=== PATIENT | female | born 1985 | race African-American/Black ===

== ENCOUNTER 2018-02-02 21:52 | Emergency (ER) | payer MEDICARE, MEDICAID ==
[~2018-02-02] VITALS: Ht 157.5 cm; Wt 65.5 kg
[~2018-02-02 21:52] MED LIST: ALBU8HFA PO; DULO60CA64 PO; HYDR-3717 PO; NAPR220T67 PO; NICO-687 TD
[2018-02-02 23:00] LABS: HCG SERUM QL POSITIVE
[2018-02-02 23:52] LABS: CLARITY,URINE CLEAR (Clear); COLOR,URINE YELLOW (Yellow); GLUCOSE, URINE NEGATIVE (Neg); KETONES,URINE 15 mg/dl (Neg); LEUKOCYTE ESTERASE ,URINE NEGATIVE (Neg); NITRITES, URINE NEGATIVE (Neg); OCCULT BLOOD,URINE NEGATIVE (Neg); PH,URINE 6.5 (4.8-8.0); PROTEIN,URINE NEGATIVE (Neg); UROBILINOGEN,URINE 0.2 E.U/dL (0.2-1.0)
[2018-02-02 23:54] LABS: UA COLLECTION TYPE CLN CATCH MIDSTREAM
[2018-02-03] MEDS ORDERED: IBUP-1984 PO (00:05)
[2018-02-03 00:08] VITALS: BP 119/72
== END 2018-02-03 00:10 | disposition home or self-care (01) ==
LOC: ER 21:56
DX: O03.9 Complete or unspecified spontaneous abortion without complication (principal); N93.8 Other specified abnormal uterine and vaginal bleeding; G89.29 Other chronic pain; J45.909 Unspecified asthma, uncomplicated; Z88.6 Allergy status to analgesic agent; Z79.899 Other long term (current) drug therapy
CPT/HCPCS: 36415; 76856; 81003; 84702; 84703; 99285

== ENCOUNTER 2018-07-08 19:41 | Emergency (ER) | payer MEDICARE, MEDICAID ==
[~2018-07-08] VITALS: Ht 167.6 cm; Wt 67.2 kg
[2018-07-08 20:06] VITALS: BP 144/89
--- NOTE | 2018-07-08 20:17 | NUR ---
PT EDUCATED ON NON-EMERGENT BP, WHILE TRIAGING PT WANTS TO LEAVE AND NOT WAIT TO BE SEEN.
== END 2018-07-08 23:49 | disposition left against medical advice (07) ==
LOC: ER 19:42
DX: F41.9 Anxiety disorder, unspecified (principal); R06.02 Shortness of breath; R07.89 Other chest pain; Z53.21 Procedure and treatment not carried out due to patient leaving prior to being seen by health care provider

== ENCOUNTER 2018-12-25 19:42 | Emergency (ER) | payer MEDICARE, MEDICAID ==
[~2018-12-25] VITALS: Ht 160 cm; Wt 63.2 kg
[~2018-12-25 19:42] MED LIST changes: -DULO60CA64 PO; +DULO60CA65 PO
[2018-12-25] MEDS ORDERED: ketorolac trometh. 30mg/ml inj. IV ONE (20:25)
[2018-12-25 20:52] LABS: URINE HCG NEGATIVE (NEG)
--- NOTE | 2018-12-25 20:57 | NUR ---
pt back to room from ct, visual acuity completed, pt tolerated well.
[2018-12-25 21:00] LABS: CLARITY,URINE CLEAR (Clear); COLOR,URINE YELLOW (Yellow); GLUCOSE, URINE NEGATIVE (Neg); KETONES,URINE >=80 mg/dl (Neg); LEUKOCYTE ESTERASE ,URINE NEGATIVE (Neg); NITRITES, URINE NEGATIVE (Neg); OCCULT BLOOD,URINE TRACE-INTACT (Neg); PROTEIN,URINE NEGATIVE (Neg); UROBILINOGEN,URINE 0.2 E.U/dL (0.2-1.0)
[2018-12-25 21:01] LABS: BASOPHILS % (AUTO) 0.4 % (0-1); EOSINOPHILS # (AUTO) 0.1 X10'3 (0-0.9); EOSINOPHILS % (AUTO) 1.3 % (0-6); HEMATOCRIT 39.4 % (35.0-45.0); HEMOGLOBIN 13.2 g/dl (12.0-16.0); LYMPHOCYTES # (AUTO) 1.6 X10'3 (1.1-4.8); LYMPHOCYTES % (AUTO) 20.8 % (21-51); MEAN CORPUSCULAR HGB CONC 33.6 g/dL (33.0-36.5); MEAN CORPUSCULAR VOLUME 95.4 FL (78-98); MONOCYTES # (AUTO) 0.6 X10'3 (0-0.9); MONOCYTES % (AUTO) 7.7 % (2-12); NEUTROPHILS # (AUTO) 5.3 X10'3 (1.8-7.7); NEUTROPHILS % (AUTO) 69.8 % (42-75); PLATELET COUNT 209 X10'3 (140-440); RED BLOOD COUNT 4.13 X10'6 (4.20-5.60); RED CELL DISTRIBUTION WIDTH 12.8 % (11.5-14.5); UA COLLECTION TYPE CLN CATCH MIDSTREAM; WHITE BLOOD COUNT 7.6 X10'3 (4.5-11.0)
[2018-12-25 21:07] LABS: ALANINE AMINOTRANSFERASE 45 U/L (12-78); ALBUMIN 3.7 G/DL (3.4-5.0); ALBUMIN/GLOBULIN RATIO 0.9 (1.1-1.5); ALKALINE PHOSPHATASE 36 IU/L (46-116); ANION GAP 13 (8-16); ASPARTATE AMINO TRANSFERASE 25 U/L (10-37); BILIRUBIN,TOTAL 0.3 MG/DL (0.1-1.0); BLOOD UREA NITROGEN 6 MG/DL (7-18); BUN/CREATININE RATIO 7.1 (6.6-38.0); CALCIUM 8.6 MG/DL (8.5-10.1); CHLORIDE 105 MMOL/L (99-107); CREATININE 0.84 MG/DL (0.40-0.90); GLUCOSE 85 MG/DL (70-104); MAGNESIUM 1.7 MG/DL (1.5-2.4); POTASSIUM 3.5 MMOL/L (3.5-5.1); SODIUM 139 MMOL/L (135-145); TOTAL PROTEIN 7.9 G/DL (6.4-8.2); eGFR > 90 ML/MIN
[2018-12-25 21:08] LABS: BACTERIA,URINE NONE SEEN /HPF (Neg); MUCUS STRANDS FEW /LPF (Neg); RBC,URINE 0-2 /HPF (0-2); SQUAMOUS EPITHELIAL CELL,UR NONE SEEN /LPF (FEW); WBC,URINE NONE SEEN /HPF (0-4)
[2018-12-25] MEDS ORDERED: dexamethasone 4mg/ml inj IV STA (21:23)
[2018-12-25] MEDS ORDERED: sulfamethoxazole/trimethoprim DS (800/160mg) tablet PO ONE (21:25)
[2018-12-25] MEDS ORDERED: cephalexin 250mg capsule PO ONE (21:25)
[2018-12-25] MEDS ORDERED: SULF1TAB49 PO (21:40)
[2018-12-25] MEDS ORDERED: CEPH500C5 PO (21:40)
[2018-12-25] MEDS ORDERED: TRAM50TA2 PO (21:52)
[2018-12-25 22:07] VITALS: BP 125/87
== END 2018-12-25 22:09 | disposition home or self-care (01) ==
LOC: ER 19:43
DX: H00.031 Abscess of right upper eyelid (principal); R51 Headache; J45.909 Unspecified asthma, uncomplicated; G89.29 Other chronic pain; F41.9 Anxiety disorder, unspecified; F32.9 Major depressive disorder, single episode, unspecified; F17.200 Nicotine dependence, unspecified, uncomplicated; Z88.6 Allergy status to analgesic agent; Z79.2 Long term (current) use of antibiotics; Z79.899 Other long term (current) drug therapy
CPT/HCPCS: 36415; 70486; 80053; 81001; 81025; 83605; 83735; 84145; 85025; 85610; 87040; 96374; 96375; 99284; J1100; J1885

== ENCOUNTER 2019-06-28 13:04 | Emergency (ER) | payer MEDICARE, MEDICAID ==
[~2019-06-28] VITALS: Ht 160 cm; Wt 70.0 kg
[~2019-06-28 13:04] MED LIST changes: +CEPH500C5 PO
[2019-06-28 13:16] VITALS: BP 135/90
[2019-06-28] MEDS ORDERED: proCHLORperazine 10mg tablet PO ONE (14:00)
[2019-06-28] MEDS ORDERED: aspirin 325mg tablet PO ONE (14:00)
[2019-06-28] MEDS ORDERED: ketorolac trometh. 30mg/ml inj. IM ONE (14:00)
[2019-06-28] MEDS ORDERED: acetaminophen 325mg tablet PO ONE (14:00)
[2019-06-28] MEDS ORDERED: dexamethasone 4mg tablet PO ONE (16:10)
[2019-06-28] MEDS ORDERED: HYDROcodone/acetaminophen 5mg/325mg tablet PO ONE (16:10)
[2019-06-28] MEDS ORDERED: diphenhydrAMINE 25mg capsule PO ONE (16:20)
[2019-06-28 16:24] LABS: URINE HCG NEGATIVE (NEG)
== END 2019-06-28 17:52 | disposition home or self-care (01) ==
LOC: ER 13:07
DX: R51 Headache (principal); R53.1 Weakness; R53.83 Other fatigue; J45.909 Unspecified asthma, uncomplicated; G89.29 Other chronic pain; F41.9 Anxiety disorder, unspecified; F32.9 Major depressive disorder, single episode, unspecified; Z79.899 Other long term (current) drug therapy
CPT/HCPCS: 70450; 81025; 96372; 99284; J1885; Q0163; Q0164

== ENCOUNTER 2020-07-22 02:14 | Emergency (ER) | payer MEDICARE, MEDICAID ==
[~2020-07-22] VITALS: Ht 157.5 cm; Wt 68.1 kg
[~2020-07-22 02:14] MED LIST changes: -CEPH500C5 PO
[2020-07-22 02:24] VITALS: BP 149/94
[2020-07-22] MEDS ORDERED: mag hydrox/Alum hydrox/simeth 30ml oral suspension PO ONE (02:55)
[2020-07-22] MEDS ORDERED: LIDOcaine Viscous 15ml cup MM ONE (02:55)
[2020-07-22] MEDS ORDERED: aspirin 81mg tab.chew PO ONE (02:55)
[2020-07-22] MEDS ORDERED: sucralfate 1gm/10ml UD suspension PO STA (02:55)
[2020-07-22 03:24] LABS: BASOPHILS % (AUTO) 0.5 % (0-1); EOSINOPHILS # (AUTO) 0.1 X10'3 (0-0.9); EOSINOPHILS % (AUTO) 1.3 % (0-6); HEMATOCRIT 37.4 % (35.0-45.0); HEMOGLOBIN 12.8 g/dl (12.0-16.0); LYMPHOCYTES # (AUTO) 2.4 X10'3 (1.1-4.8); MEAN CORPUSCULAR HEMOGLOBIN 32.7 PG (27.0-31.0); MEAN CORPUSCULAR HGB CONC 34.2 g/dL (33.0-36.5); MEAN CORPUSCULAR VOLUME 95.7 FL (78-98); MEAN PLATELET VOLUME 8.9 FL (7.4-10.4); MONOCYTES # (AUTO) 0.9 X10'3 (0-0.9); MONOCYTES % (AUTO) 11.9 % (2-12); NEUTROPHILS # (AUTO) 4.1 X10'3 (1.8-7.7); NEUTROPHILS % (AUTO) 54.3 % (42-75); PLATELET COUNT 178 X10'3 (140-440); RED BLOOD COUNT 3.91 X10'6 (4.20-5.60); RED CELL DISTRIBUTION WIDTH 12.6 % (11.5-14.5); WHITE BLOOD COUNT 7.5 X10'3 (4.5-11.0)
[2020-07-22 03:35] LABS: ALANINE AMINOTRANSFERASE 17 U/L (12-78); ALBUMIN 3.4 G/DL (3.4-5.0); ALBUMIN/GLOBULIN RATIO 0.9 (1.1-1.5); ALKALINE PHOSPHATASE 47 IU/L (46-116); ANION GAP 10 (8-16); ASPARTATE AMINO TRANSFERASE 22 U/L (10-37); BILIRUBIN,TOTAL 0.2 MG/DL (0.1-1.0); BLOOD UREA NITROGEN 21 MG/DL (7-18); BUN/CREATININE RATIO 21.2 (6.6-38.0); CALCIUM 8.9 MG/DL (8.5-10.1); CHLORIDE 105 MMOL/L (99-107); CREATININE 0.99 MG/DL (0.40-0.90); GLUCOSE 77 MG/DL (70-104); POTASSIUM 3.9 MMOL/L (3.5-5.1); SODIUM 140 MMOL/L (135-145); TOTAL CARBON DIOXIDE 25.3 MMOL/L (24-32); eGFR 77 ML/MIN
[2020-07-22 03:42] LABS: MAGNESIUM 1.8 MG/DL (1.5-2.4)
[2020-07-22] MEDS ORDERED: SUCR1TAB34 PO (04:02)
[2020-07-22] MEDS ORDERED: LORA-269 PO (04:10)
== END 2020-07-22 04:09 | disposition home or self-care (01) ==
LOC: ER 02:15
DX: R07.89 Other chest pain (principal); R06.02 Shortness of breath; J45.909 Unspecified asthma, uncomplicated; G89.29 Other chronic pain; F41.9 Anxiety disorder, unspecified; F32.9 Major depressive disorder, single episode, unspecified; Z79.899 Other long term (current) drug therapy
CPT/HCPCS: 36415; 71045; 80053; 83735; 83880; 84484; 85025; 93005; 99285

== ENCOUNTER 2021-08-10 23:22 | Emergency (ER) | payer MEDICARE, MEDICAID ==
[~2021-08-10] VITALS: Ht 160 cm; Wt 68.2 kg
[~2021-08-10 23:22] MED LIST changes: +LORA-269 PO; +SUCR1TAB34 PO
[2021-08-11 00:35] LABS: BASOPHILS % (AUTO) 0.4 % (0-1); EOSINOPHILS # (AUTO) 0.1 X10'3 (0-0.9); EOSINOPHILS % (AUTO) 2.2 % (0-6); HEMATOCRIT 38.6 % (35.0-45.0); HEMOGLOBIN 13.2 g/dl (12.0-16.0); LYMPHOCYTES # (AUTO) 2.1 X10'3 (1.1-4.8); LYMPHOCYTES % (AUTO) 36.3 % (21-51); MEAN CORPUSCULAR HEMOGLOBIN 31.9 PG (27.0-31.0); MEAN CORPUSCULAR HGB CONC 34.1 g/dL (33.0-36.5); MEAN CORPUSCULAR VOLUME 93.6 FL (78-98); MEAN PLATELET VOLUME 9.2 FL (7.4-10.4); MONOCYTES # (AUTO) 0.6 X10'3 (0-0.9); MONOCYTES % (AUTO) 10.9 % (2-12); NEUTROPHILS # (AUTO) 2.9 X10'3 (1.8-7.7); NEUTROPHILS % (AUTO) 50.2 % (42-75); PLATELET COUNT 187 X10'3 (140-440); RED BLOOD COUNT 4.12 X10'6 (4.20-5.60); RED CELL DISTRIBUTION WIDTH 13.4 % (11.5-14.5); WHITE BLOOD COUNT 5.8 X10'3 (4.5-11.0)
--- NOTE | 2021-08-11 01:00 | NUR ---
Pt pink, alert, no acute/resp distress. Bed in lowest position, rails 2/2 up, call weathers in reach. Pt laying supine, able to reposition herself prn.
[2021-08-11 01:01] LABS: ALANINE AMINOTRANSFERASE 22 U/L (12-78); ALBUMIN 3.9 G/DL (3.4-5.0); ALBUMIN/GLOBULIN RATIO 1.1 (1.1-1.5); ALKALINE PHOSPHATASE 51 IU/L (46-116); ANION GAP 7 (8-16); ASPARTATE AMINO TRANSFERASE 21 U/L (10-37); BILIRUBIN,TOTAL 0.2 MG/DL (0.1-1.0); BLOOD UREA NITROGEN 19 MG/DL (7-18); BUN/CREATININE RATIO 20.7 (6.6-38.0); CALCIUM 8.7 MG/DL (8.5-10.1); CHLORIDE 105 MMOL/L (99-107); CREATININE 0.92 MG/DL (0.40-0.90); GLUCOSE 83 MG/DL (70-104); POTASSIUM 3.8 MMOL/L (3.5-5.1); SODIUM 141 MMOL/L (135-145); TOTAL PROTEIN 7.4 G/DL (6.4-8.2); eGFR 83 ML/MIN
[2021-08-11] MEDS ORDERED: ketorolac tromethamine 15mg/ml inj. IV ONE ×2 (01:50→02:15)
[2021-08-11] MEDS ORDERED: NAPR-56 PO (01:53)
[2021-08-11] MEDS ORDERED: TRAM50TA2 PO (01:53)
[2021-08-11 02:22] VITALS: BP 123/79
== END 2021-08-11 02:23 | disposition home or self-care (01) ==
LOC: ER 23:23
DX: R07.9 Chest pain, unspecified (principal); J45.909 Unspecified asthma, uncomplicated; D64.9 Anemia, unspecified; G89.29 Other chronic pain; M54.9 Dorsalgia, unspecified; F41.9 Anxiety disorder, unspecified; F32.9 Major depressive disorder, single episode, unspecified; Z79.899 Other long term (current) drug therapy
CPT/HCPCS: 36415; 71045; 80053; 83880; 84484; 85025; 93005; 96374; 99285; J1885

== ENCOUNTER 2021-11-07 21:08 | Emergency (ER) | payer MEDICARE, MEDICAID ==
[~2021-11-07] VITALS: Ht 157.5 cm; Wt 71.6 kg
[2021-11-07 21:26] VITALS: BP 139/100
[2021-11-07] MEDS ORDERED: ibuprofen tablet 400 MG TABLET PO ONE (21:45)
[2021-11-08] MEDS ORDERED: naproxen 500mg tablet PO ONE (00:40)
--- NOTE | 2021-11-08 01:40 | NUR ---
PT DISCHARGED BEFORE NURSING ASSESSMENTS DONE, PT WAS PULLED FROM THE LOBBY BY THE ER MD TO BE SEEN
== END 2021-11-08 01:40 | disposition home or self-care (01) ==
LOC: ER 21:08
DX: B34.9 Viral infection, unspecified (principal); Z20.822 Contact with and (suspected) exposure to COVID-19; J45.909 Unspecified asthma, uncomplicated; G89.29 Other chronic pain; M54.9 Dorsalgia, unspecified; F31.9 Bipolar disorder, unspecified; Z79.899 Other long term (current) drug therapy
CPT/HCPCS: 71045; 87811; 99284

== ENCOUNTER 2022-02-27 00:28 | Emergency (ER) | payer MEDICARE, MEDICAID ==
[~2022-02-27] VITALS: Ht 157.5 cm; Wt 70.0 kg
[2022-02-27 03:05] VITALS: BP 122/100
[2022-02-27] MEDS ORDERED: morphine 4 MG/ML inj SYRINge IV ONE ×2 (03:25→04:15)
[2022-02-27] MEDS ORDERED: ondansetron/PF 4mg/2ml inj IV ONE (03:25)
[2022-02-27] MEDS ORDERED: normal saline 1000ML IV soln IVB ONE (03:25)
[2022-02-27] MEDS ORDERED: ampicillin/sulbac 3gm/NS 100ml 100 ML IV SCH (03:28)
[2022-02-27 04:09] LABS: BASOPHILS % (AUTO) 0.5 % (0-1); EOSINOPHILS # (AUTO) 0.1 X10'3 (0-0.9); EOSINOPHILS % (AUTO) 2.4 % (0-6); HEMATOCRIT 38.5 % (35.0-45.0); MEAN CORPUSCULAR HEMOGLOBIN 31.8 PG (27.0-31.0); MEAN CORPUSCULAR HGB CONC 33.7 g/dL (33.0-36.5); MEAN CORPUSCULAR VOLUME 94.3 FL (78-98); MEAN PLATELET VOLUME 9.4 FL (7.4-10.4); MONOCYTES # (AUTO) 0.4 X10'3 (0-0.9); MONOCYTES % (AUTO) 7.2 % (2-12); NEUTROPHILS # (AUTO) 3.3 X10'3 (1.8-7.7); NEUTROPHILS % (AUTO) 55.9 % (42-75); PLATELET COUNT 196 X10'3 (140-440); RED BLOOD COUNT 4.08 X10'6 (4.20-5.60); RED CELL DISTRIBUTION WIDTH 12.8 % (11.5-14.5); WHITE BLOOD COUNT 5.9 X10'3 (4.5-11.0)
[2022-02-27] MEDS ORDERED: iohexol 300mg/ml 100ml inj. ONE (04:09)
[2022-02-27 04:23] LABS: ALANINE AMINOTRANSFERASE 20 U/L (12-78); ALBUMIN/GLOBULIN RATIO 1.1 (1.1-1.5); ALKALINE PHOSPHATASE 63 IU/L (46-116); ANION GAP 10 (8-16); ASPARTATE AMINO TRANSFERASE 21 U/L (10-37); BILIRUBIN,TOTAL 0.2 MG/DL (0.1-1.0); BLOOD UREA NITROGEN 14 MG/DL (7-18); BUN/CREATININE RATIO 15.6 (6.6-38.0); CALCIUM 9.4 MG/DL (8.5-10.1); CHLORIDE 101 MMOL/L (99-107); GLUCOSE 97 MG/DL (70-104); SODIUM 138 MMOL/L (135-145); TOTAL CARBON DIOXIDE 27.4 MMOL/L (24-32); TOTAL PROTEIN 7.7 G/DL (6.4-8.2); eGFR 85 ML/MIN
--- NOTE | 2022-02-27 04:33 | NUR ---
CT WAS PAGED AT [id number]
[2022-02-27 05:03] LABS: HCG SERUM QL NEGATIVE
[2022-02-27] MEDS ORDERED: AMOX-117 PO (06:24)
[2022-02-27] MEDS ORDERED: HYDR-3965 PO (06:24)
--- NOTE | 2022-02-27 06:50 | NUR ---
Pt given and understands d/c instructions. IV d/c'd, catheter was intact.
== END 2022-02-27 06:50 | disposition home or self-care (01) ==
LOC: ER 00:30
DX: K08.89 Other specified disorders of teeth and supporting structures (principal); R68.84 Jaw pain; J45.909 Unspecified asthma, uncomplicated; G89.29 Other chronic pain; F41.9 Anxiety disorder, unspecified; F17.200 Nicotine dependence, unspecified, uncomplicated; Z87.01 Personal history of pneumonia (recurrent); Z86.2 Personal history of diseases of the blood and blood-forming organs and certain disorders involving the immune mechanism; Z98.890 Other specified postprocedural states; Z79.2 Long term (current) use of antibiotics; Z79.899 Other long term (current) drug therapy
CPT/HCPCS: 36415; 70487; 80053; 83605; 84703; 85025; 96365; 96375; 96376; 99285; J0295; J2270; J2405; J3490; J7030; Q9967

== ENCOUNTER 2022-03-26 22:00 | Emergency (ER) | payer BC, MEDICAID ==
[~2022-03-26] VITALS: Ht 157.5 cm; Wt 68.0 kg
[~2022-03-26 22:00] MED LIST changes: -HYDR-3717 PO; -LORA-269 PO; -NAPR220T67 PO; -NICO-687 TD; -SUCR1TAB34 PO
[2022-03-26 22:14] LABS: BASOPHILS # (AUTO) 0.1 X10'3 (0-0.2); BASOPHILS % (AUTO) 1.5 % (0-1); EOSINOPHILS % (AUTO) 0.7 % (0-6); HEMATOCRIT 39.4 % (35.0-45.0); HEMOGLOBIN 13.1 g/dl (12.0-16.0); LYMPHOCYTES % (AUTO) 33.1 % (21-51); MEAN CORPUSCULAR HEMOGLOBIN 31.2 PG (27.0-31.0); MEAN CORPUSCULAR HGB CONC 33.3 g/dL (33.0-36.5); MEAN CORPUSCULAR VOLUME 93.7 FL (78-98); MEAN PLATELET VOLUME 8.8 FL (7.4-10.4); MONOCYTES # (AUTO) 0.6 X10'3 (0-0.9); MONOCYTES % (AUTO) 9.2 % (2-12); NEUTROPHILS # (AUTO) 3.4 X10'3 (1.8-7.7); NEUTROPHILS % (AUTO) 55.5 % (42-75); PLATELET COUNT 218 X10'3 (140-440); RED BLOOD COUNT 4.21 X10'6 (4.20-5.60); RED CELL DISTRIBUTION WIDTH 12.8 % (11.5-14.5); WHITE BLOOD COUNT 6.2 X10'3 (4.5-11.0)
[2022-03-26] MEDS ORDERED: normal saline 1000ML IV soln IVB ONE (22:20)
[2022-03-26 22:29] LABS: ALANINE AMINOTRANSFERASE 17 U/L (12-78); ALBUMIN/GLOBULIN RATIO 1.1 (1.1-1.5); ALKALINE PHOSPHATASE 50 IU/L (46-116); ANION GAP 9 (8-16); ASPARTATE AMINO TRANSFERASE 18 U/L (10-37); BILIRUBIN,TOTAL 0.3 MG/DL (0.1-1.0); BLOOD UREA NITROGEN 8 MG/DL (7-18); BUN/CREATININE RATIO 7.7 (6.6-38.0); CALCIUM 9.6 MG/DL (8.5-10.1); CHLORIDE 100 MMOL/L (99-107); CREATININE 1.04 MG/DL (0.40-0.90); GLUCOSE 103 MG/DL (70-104); POTASSIUM 3.5 MMOL/L (3.5-5.1); SODIUM 137 MMOL/L (135-145); TOTAL PROTEIN 7.6 G/DL (6.4-8.2); eGFR 72 ML/MIN
[2022-03-26 22:55] LABS: D-DIMER 1.36 MG/L FEU (0-0.50)
[2022-03-27] MEDS ORDERED: iohexol 350MG/ML 100ml bottle IV ONE (00:29)
[2022-03-27] MEDS ORDERED: ketorolac tromethamine 15mg/ml inj. IV ONE (01:05)
[2022-03-27 01:48] LABS: URINE HCG NEGATIVE (NEG)
[2022-03-27 02:07] LABS: URINE AMPHETAMINE SCREEN NEGATIVE (Neg); URINE BARBITUATE SCREEN NEGATIVE (Neg); URINE BENZODIAZEPINES SCREEN NEGATIVE (Neg); URINE CANNABINOID SCREEN NEGATIVE (Neg); URINE COCAINE SCREEN NEGATIVE (Neg); URINE METHADONE SCREEN NEGATIVE (Neg); URINE OPIATE SCREEN NEGATIVE (Neg); URINE PHENCYCLIDINE SCREEN NEGATIVE (Neg)
[2022-03-27] MEDS ORDERED: acetaminophen 325mg tablet PO ONE (03:00)
[2022-03-27 03:40] VITALS: BP 132/78
== END 2022-03-27 03:43 | disposition home or self-care (01) ==
LOC: ER 22:01
DX: I47.1 Supraventricular tachycardia (principal); Z20.822 Contact with and (suspected) exposure to COVID-19; G89.29 Other chronic pain; J45.909 Unspecified asthma, uncomplicated; M54.9 Dorsalgia, unspecified; F31.9 Bipolar disorder, unspecified; Z79.899 Other long term (current) drug therapy
CPT/HCPCS: 36415; 71045; 71275; 80053; 80305; 81025; 83880; 84443; 84484; 85025; 85379; 87502; 87503; 87811; 93005; 96361; 96374; 99285; J1885; J3490; J7030; Q9967

== ENCOUNTER 2022-04-03 13:54 | Emergency (ER) | payer OTHER, MEDICAID ==
[~2022-04-03] VITALS: Ht 157.5 cm; Wt 67.3 kg
[2022-04-03 14:17] LABS: BASOPHILS % (AUTO) 0.4 % (0-1); EOSINOPHILS # (AUTO) 0.2 X10'3 (0-0.9); EOSINOPHILS % (AUTO) 2.5 % (0-6); HEMATOCRIT 37.7 % (35.0-45.0); HEMOGLOBIN 12.8 g/dl (12.0-16.0); LYMPHOCYTES # (AUTO) 2.5 X10'3 (1.1-4.8); LYMPHOCYTES % (AUTO) 35.8 % (21-51); MEAN CORPUSCULAR HEMOGLOBIN 31.9 PG (27.0-31.0); MEAN CORPUSCULAR HGB CONC 34.1 g/dL (33.0-36.5); MEAN CORPUSCULAR VOLUME 93.7 FL (78-98); MEAN PLATELET VOLUME 8.6 FL (7.4-10.4); MONOCYTES # (AUTO) 0.8 X10'3 (0-0.9); MONOCYTES % (AUTO) 10.9 % (2-12); NEUTROPHILS # (AUTO) 3.5 X10'3 (1.8-7.7); NEUTROPHILS % (AUTO) 50.4 % (42-75); PLATELET COUNT 215 X10'3 (140-440); RED BLOOD COUNT 4.02 X10'6 (4.20-5.60); WHITE BLOOD COUNT 6.9 X10'3 (4.5-11.0)
[2022-04-03 14:43] LABS: ALANINE AMINOTRANSFERASE 17 U/L (12-78); ALBUMIN 3.8 G/DL (3.4-5.0); ALBUMIN/GLOBULIN RATIO 1.1 (1.1-1.5); ALKALINE PHOSPHATASE 49 IU/L (46-116); ANION GAP 9 (8-16); ASPARTATE AMINO TRANSFERASE 16 U/L (10-37); BILIRUBIN,TOTAL 0.2 MG/DL (0.1-1.0); BLOOD UREA NITROGEN 7 MG/DL (7-18); BUN/CREATININE RATIO 7.9 (6.6-38.0); CALCIUM 9.2 MG/DL (8.5-10.1); CHLORIDE 102 MMOL/L (99-107); CREATININE 0.89 MG/DL (0.40-0.90); GLUCOSE 78 MG/DL (70-104); MAGNESIUM 1.8 MG/DL (1.5-2.4); POTASSIUM 3.5 MMOL/L (3.5-5.1); SODIUM 139 MMOL/L (135-145); TOTAL CARBON DIOXIDE 27.8 MMOL/L (24-32); TOTAL PROTEIN 7.3 G/DL (6.4-8.2); eGFR 86 ML/MIN
[2022-04-03 15:20] LABS: D-DIMER 1.45 MG/L FEU (0-0.50)
[2022-04-03 16:27] VITALS: BP 131/87
== END 2022-04-03 17:11 | disposition home or self-care (01) ==
LOC: ER 13:54
DX: R07.9 Chest pain, unspecified (principal); R42 Dizziness and giddiness; I10 Essential (primary) hypertension; J45.909 Unspecified asthma, uncomplicated; G89.29 Other chronic pain; M54.9 Dorsalgia, unspecified
CPT/HCPCS: 36415; 71045; 80053; 83735; 83880; 84484; 85025; 85379; 93005; 99285

== ENCOUNTER 2022-05-01 02:21 | Emergency (ER) | payer OTHER, MEDICAID ==
[~2022-05-01] VITALS: Ht 157.5 cm; Wt 71.4 kg
[2022-05-01 03:29] LABS: BASOPHILS % (AUTO) 0.2 % (0-1); EOSINOPHILS % (AUTO) 0 % (0-6); HEMOGLOBIN 13.6 g/dl (12.0-16.0); LYMPHOCYTES # (AUTO) 0.4 X10'3 (1.1-4.8); LYMPHOCYTES % (AUTO) 5.6 % (21-51); MEAN CORPUSCULAR HEMOGLOBIN 32.1 PG (27.0-31.0); MEAN CORPUSCULAR VOLUME 94.7 FL (78-98); MEAN PLATELET VOLUME 8.7 FL (7.4-10.4); MONOCYTES # (AUTO) 0.1 X10'3 (0-0.9); NEUTROPHILS # (AUTO) 6.3 X10'3 (1.8-7.7); NEUTROPHILS % (AUTO) 93.2 % (42-75); PLATELET COUNT 245 X10'3 (140-440); RED BLOOD COUNT 4.22 X10'6 (4.20-5.60); RED CELL DISTRIBUTION WIDTH 13.5 % (11.5-14.5); WHITE BLOOD COUNT 6.7 X10'3 (4.5-11.0)
[2022-05-01 03:50] LABS: ALANINE AMINOTRANSFERASE 25 U/L (12-78); ALBUMIN 4.4 G/DL (3.4-5.0); ALBUMIN/GLOBULIN RATIO 1.1 (1.1-1.5); ALKALINE PHOSPHATASE 53 IU/L (46-116); ANION GAP 13 (8-16); ASPARTATE AMINO TRANSFERASE 20 U/L (10-37); BILIRUBIN,TOTAL 0.3 MG/DL (0.1-1.0); BLOOD UREA NITROGEN 22 MG/DL (7-18); BUN/CREATININE RATIO 22.2 (6.6-38.0); CALCIUM 9.6 MG/DL (8.5-10.1); CHLORIDE 99 MMOL/L (99-107); CREATININE 0.99 MG/DL (0.40-0.90); GLUCOSE 190 MG/DL (70-104); POTASSIUM 3.6 MMOL/L (3.5-5.1); SODIUM 131 MMOL/L (135-145); TOTAL CARBON DIOXIDE 19.4 MMOL/L (24-32); TOTAL PROTEIN 8.5 G/DL (6.4-8.2); eGFR 76 ML/MIN
[2022-05-01] MEDS ORDERED: magnesium oxide 400mg tablet PO ONE (08:40)
[2022-05-01 08:52] LABS: ETHANOL < 0.010 GM/DL (0.0-0.010); MAGNESIUM 2.2 MG/DL (1.5-2.4)
[2022-05-01] MEDS ORDERED: LOP12.5T PO (09:24)
[2022-05-01] MEDS ORDERED: ketorolac trometh inj. 60 MG/2 ML VIAL IM ONE (09:25)
[2022-05-01] MEDS ORDERED: MELO-102 PO (09:25)
[2022-05-01 09:29] VITALS: BP 132/91
--- NOTE | 2022-05-01 09:51 | NUR ---
Pt educated on d/c instructions, f/u w/ hand stitcher, new medications and to stop taking her celebrex. All questions answered and pt verbalized understanding. No s/s of distress. Pt able to ambulate out of the department
== END 2022-05-01 09:50 | disposition home or self-care (01) ==
LOC: ER 02:22
DX: I47.1 Supraventricular tachycardia (principal); G89.29 Other chronic pain; M54.6 Pain in thoracic spine; I10 Essential (primary) hypertension; J45.909 Unspecified asthma, uncomplicated
CPT/HCPCS: 36415; 80053; 80320; 83735; 83880; 84484; 85025; 93005; 96372; 99284; J1885

== ENCOUNTER 2022-07-11 19:21 | Emergency (ER) | payer BC, MEDICAID ==
[~2022-07-11] VITALS: Ht 160 cm; Wt 70.5 kg
[~2022-07-11 19:21] MED LIST changes: +LOP12.5T PO; +MELO-102 PO
[2022-07-11 19:23] VITALS: BP 136/94
[2022-07-11] MEDS ORDERED: BENZ1LOZ74 PO (21:56)
[2022-07-11] MEDS ORDERED: AMOX-117 PO (21:56)
[2022-07-11] MEDS ORDERED: amox tr/potassium clavulanate 875/125mg TAB PO ONE (22:00)
[2022-07-11] MEDS ORDERED: LIDOcaine Viscous 15ml cup MM ONE (22:00)
== END 2022-07-11 22:07 | disposition home or self-care (01) ==
LOC: ER 19:21
DX: J02.9 Acute pharyngitis, unspecified (principal); I10 Essential (primary) hypertension; J45.909 Unspecified asthma, uncomplicated; G89.29 Other chronic pain; M54.50 Low back pain, unspecified
CPT/HCPCS: 99283

== ENCOUNTER 2022-08-01 12:30 | Emergency (ER) | payer BC, MEDICAID ==
[~2022-08-01] VITALS: Ht 157.5 cm; Wt 67.0 kg
[~2022-08-01 12:30] MED LIST changes: +BENZ1LOZ74 PO
[2022-08-01 12:37] VITALS: BP 124/89
[2022-08-01 12:54] LABS: BASOPHILS % (AUTO) 0.4 % (0-1); EOSINOPHILS % (AUTO) 0.4 % (0-6); HEMATOCRIT 40.6 % (35.0-45.0); HEMOGLOBIN 13.9 g/dl (12.0-16.0); LYMPHOCYTES # (AUTO) 1.9 X10'3 (1.1-4.8); LYMPHOCYTES % (AUTO) 26.9 % (21-51); MEAN CORPUSCULAR HEMOGLOBIN 32.4 PG (27.0-31.0); MEAN CORPUSCULAR HGB CONC 34.3 g/dL (33.0-36.5); MEAN CORPUSCULAR VOLUME 94.7 FL (78-98); MEAN PLATELET VOLUME 7.9 FL (7.4-10.4); MONOCYTES # (AUTO) 0.6 X10'3 (0-0.9); MONOCYTES % (AUTO) 9.4 % (2-12); NEUTROPHILS # (AUTO) 4.3 X10'3 (1.8-7.7); NEUTROPHILS % (AUTO) 62.9 % (42-75); PLATELET COUNT 241 X10'3 (140-440); RED BLOOD COUNT 4.29 X10'6 (4.20-5.60); RED CELL DISTRIBUTION WIDTH 12.7 % (11.5-14.5); WHITE BLOOD COUNT 6.9 X10'3 (4.5-11.0)
[2022-08-01 13:03] LABS: ALANINE AMINOTRANSFERASE 15 U/L (12-78); ALBUMIN/GLOBULIN RATIO 0.9 (1.1-1.5); ALKALINE PHOSPHATASE 40 IU/L (46-116); ANION GAP 7 (8-16); ASPARTATE AMINO TRANSFERASE 10 U/L (10-37); BILIRUBIN,TOTAL 0.3 MG/DL (0.1-1.0); BLOOD UREA NITROGEN 12 MG/DL (7-18); BUN/CREATININE RATIO 12.4 (10.0-20.0); CALCIUM 9.3 MG/DL (8.5-10.1); CHLORIDE 96 MMOL/L (99-107); CREATININE 0.97 MG/DL (0.40-0.90); GLUCOSE 119 MG/DL (70-104); POTASSIUM 4.2 MMOL/L (3.5-5.1); SODIUM 132 MMOL/L (135-145); TOTAL CARBON DIOXIDE 29.4 MMOL/L (24-32); TOTAL PROTEIN 8.4 G/DL (6.4-8.2); eGFR 78 ML/MIN
[2022-08-01 13:14] LABS: MAGNESIUM 2.1 MG/DL (1.5-2.4)
== END 2022-08-01 17:43 | disposition home or self-care (01) ==
LOC: ER 12:30
DX: R00.2 Palpitations (principal); I10 Essential (primary) hypertension; J45.909 Unspecified asthma, uncomplicated; G89.29 Other chronic pain; M54.50 Low back pain, unspecified
CPT/HCPCS: 36415; 71045; 80053; 83735; 83880; 84484; 85025; 93005; 99285

== ENCOUNTER 2022-10-20 17:29 | Emergency (ER) | payer BC, MEDICAID ==
[~2022-10-20] VITALS: Ht 157.5 cm; Wt 72.7 kg
[2022-10-20 18:21] LABS: BASOPHILS % (AUTO) 0.3 % (0-1); EOSINOPHILS # (AUTO) 0.1 X10'3 (0-0.9); EOSINOPHILS % (AUTO) 1.7 % (0-6); HEMATOCRIT 40.5 % (35.0-45.0); HEMOGLOBIN 13.3 g/dl (12.0-16.0); LYMPHOCYTES # (AUTO) 1.9 X10'3 (1.1-4.8); LYMPHOCYTES % (AUTO) 26.7 % (21-51); MEAN CORPUSCULAR HEMOGLOBIN 31.6 PG (27.0-31.0); MEAN CORPUSCULAR HGB CONC 32.8 g/dL (33.0-36.5); MEAN CORPUSCULAR VOLUME 96.5 FL (78-98); MEAN PLATELET VOLUME 9.8 FL (7.4-10.4); MONOCYTES # (AUTO) 0.5 X10'3 (0-0.9); MONOCYTES % (AUTO) 7.6 % (2-12); NEUTROPHILS # (AUTO) 4.6 X10'3 (1.8-7.7); NEUTROPHILS % (AUTO) 63.7 % (42-75); PLATELET COUNT 203 X10'3 (140-440); RED BLOOD COUNT 4.19 X10'6 (4.20-5.60); WHITE BLOOD COUNT 7.2 X10'3 (4.5-11.0)
[2022-10-20 19:26] LABS: ALANINE AMINOTRANSFERASE 19 U/L (12-78); ALBUMIN 3.7 G/DL (3.4-5.0); ALBUMIN/GLOBULIN RATIO 1.1 (1.1-1.5); ALKALINE PHOSPHATASE 47 IU/L (46-116); ANION GAP 8 (8-16); ASPARTATE AMINO TRANSFERASE 16 U/L (10-37); BILIRUBIN,TOTAL 0.3 MG/DL (0.1-1.0); BLOOD UREA NITROGEN 14 MG/DL (7-18); BUN/CREATININE RATIO 14.1 (10.0-20.0); CALCIUM 9.3 MG/DL (8.5-10.1); CHLORIDE 102 MMOL/L (99-107); CREATININE 0.99 MG/DL (0.40-0.90); GLUCOSE 81 MG/DL (70-104); POTASSIUM 4.3 MMOL/L (3.5-5.1); SODIUM 139 MMOL/L (135-145); TOTAL CARBON DIOXIDE 28.8 MMOL/L (24-32); TOTAL PROTEIN 7.1 G/DL (6.4-8.2); eGFR 76 ML/MIN
[2022-10-20] MEDS ORDERED: LORazepam 1 MG tablet PO STA (23:23)
--- NOTE | 2022-10-20 23:43 | NUR ---
1MG PO ATIVAN DROPPED ON FLOOR BEFORE ADMIN. WASTED WITH MEGAN RN. PHARMACY CALLED TO REACTIVATE ORDER TO BE ABLE TO PULL ANOTHER FROM [facility].
[2022-10-20] MEDS ORDERED: LORazepam 0.5 MG tablet PO ONE (23:45)
[2022-10-21 01:10] VITALS: BP 127/85
== END 2022-10-21 00:25 | disposition home or self-care (01) ==
LOC: ER 17:30
DX: F41.9 Anxiety disorder, unspecified (principal); I10 Essential (primary) hypertension; J45.909 Unspecified asthma, uncomplicated
CPT/HCPCS: 36415; 80053; 83880; 84484; 85025; 93005; 99284

== ENCOUNTER 2023-03-06 18:52 | Emergency (ER) | payer BC, MEDICAID ==
[~2023-03-06] VITALS: Ht 157.5 cm; Wt 73.8 kg
[2023-03-06 20:59] LABS: BASOPHILS % (AUTO) 0.5 % (0-1); EOSINOPHILS % (AUTO) 0.6 % (0-6); HEMATOCRIT 41.1 % (35.0-45.0); HEMOGLOBIN 13.8 g/dl (12.0-16.0); LYMPHOCYTES # (AUTO) 1.5 X10'3 (1.1-4.8); LYMPHOCYTES % (AUTO) 26.5 % (21-51); MEAN CORPUSCULAR HGB CONC 33.5 g/dL (33.0-36.5); MEAN CORPUSCULAR VOLUME 95.7 FL (78-98); MEAN PLATELET VOLUME 9.1 FL (7.4-10.4); MONOCYTES # (AUTO) 0.6 X10'3 (0-0.9); MONOCYTES % (AUTO) 10.4 % (2-12); NEUTROPHILS # (AUTO) 3.6 X10'3 (1.8-7.7); PLATELET COUNT 207 X10'3 (140-440); WHITE BLOOD COUNT 5.8 X10'3 (4.5-11.0)
[2023-03-06 21:09] LABS: ALANINE AMINOTRANSFERASE 13 U/L (12-78); ALBUMIN 3.8 G/DL (3.4-5.0); ALKALINE PHOSPHATASE 39 IU/L (46-116); ANION GAP 7 (8-16); ASPARTATE AMINO TRANSFERASE 9 U/L (10-37); BILIRUBIN,TOTAL 0.3 MG/DL (0.1-1.0); BLOOD UREA NITROGEN 7 MG/DL (7-18); BUN/CREATININE RATIO 7.9 (10.0-20.0); CALCIUM 9.2 MG/DL (8.5-10.1); CHLORIDE 98 MMOL/L (99-107); CREATININE 0.89 MG/DL (0.40-0.90); GLUCOSE 120 MG/DL (70-104); POTASSIUM 3.3 MMOL/L (3.5-5.1); SODIUM 135 MMOL/L (135-145); TOTAL CARBON DIOXIDE 29.6 MMOL/L (24-32); TOTAL PROTEIN 7.5 G/DL (6.4-8.2); eCRCL 68 ML/MIN; eGFR 86 ML/MIN
[2023-03-06 21:17] LABS: PRO BRAIN NATRIURETIC PEPTIDE 43 PG/ML (0-125)
[2023-03-06] MEDS ORDERED: potassium chloride 10mEq ER tablet PO SCH (22:10)
[2023-03-06 22:18] VITALS: BP 129/94; PULSE 93; TEMP 98.2; O2SAT 100
[2023-03-06 22:32] VITALS: RESP 18
--- NOTE | 2023-03-07 00:16 | NUR ---
I AGREE WITH ASSESMENT OF HISTORICAL MANUSCRIPTS CURATOR.
== END 2023-03-06 22:41 | disposition home or self-care (01) ==
LOC: ER 18:52
DX: M25.511 Pain in right shoulder (principal); E87.6 Hypokalemia; J45.909 Unspecified asthma, uncomplicated; I10 Essential (primary) hypertension; G89.29 Other chronic pain; F31.9 Bipolar disorder, unspecified; Z79.899 Other long term (current) drug therapy
CPT/HCPCS: 36415; 80053; 83880; 84484; 85025; 93005; 99284

== ENCOUNTER 2023-04-06 10:56 | Emergency (ER) | payer BC, MEDICAID ==
[~2023-04-06] VITALS: Ht 157.5 cm; Wt 68.2 kg
[2023-04-06 11:11] VITALS: BP 137/80; PULSE 83; RESP 18; TEMP 97.8; O2SAT 100
[2023-04-06 11:26] LABS: BASOPHILS % (AUTO) 0.3 % (0-1); EOSINOPHILS # (AUTO) 0.1 X10'3 (0-0.9); EOSINOPHILS % (AUTO) 0.7 % (0-6); HEMATOCRIT 38.1 % (35.0-45.0); HEMOGLOBIN 12.7 g/dl (12.0-16.0); LYMPHOCYTES # (AUTO) 1.9 X10'3 (1.1-4.8); LYMPHOCYTES % (AUTO) 23.1 % (21-51); MEAN CORPUSCULAR HEMOGLOBIN 31.7 PG (27.0-31.0); MEAN CORPUSCULAR HGB CONC 33.4 g/dL (33.0-36.5); MEAN CORPUSCULAR VOLUME 94.7 FL (78-98); MEAN PLATELET VOLUME 9.5 FL (7.4-10.4); MONOCYTES # (AUTO) 0.8 X10'3 (0-0.9); MONOCYTES % (AUTO) 9.7 % (2-12); NEUTROPHILS # (AUTO) 5.3 X10'3 (1.8-7.7); NEUTROPHILS % (AUTO) 66.2 % (42-75); PLATELET COUNT 209 X10'3 (140-440); RED BLOOD COUNT 4.02 X10'6 (4.20-5.60); RED CELL DISTRIBUTION WIDTH 12.9 % (11.5-14.5)
[2023-04-06 11:42] LABS: ALANINE AMINOTRANSFERASE 14 U/L (12-78); ALBUMIN 3.1 G/DL (3.4-5.0); ALBUMIN/GLOBULIN RATIO 0.9 (1.1-1.5); ALKALINE PHOSPHATASE 42 IU/L (46-116); ANION GAP 5 (8-16); ASPARTATE AMINO TRANSFERASE 21 U/L (10-37); BILIRUBIN,TOTAL 0.3 MG/DL (0.1-1.0); BLOOD UREA NITROGEN 11 MG/DL (7-18); BUN/CREATININE RATIO 13.9 (10.0-20.0); CALCIUM 8.9 MG/DL (8.5-10.1); CHLORIDE 102 MMOL/L (99-107); CREATININE 0.79 MG/DL (0.40-0.90); GLUCOSE 91 MG/DL (70-104); POTASSIUM 3.3 MMOL/L (3.5-5.1); SODIUM 135 MMOL/L (135-145); TOTAL CARBON DIOXIDE 27.7 MMOL/L (24-32); TOTAL PROTEIN 6.7 G/DL (6.4-8.2); eCRCL 76 ML/MIN; eGFR > 90 ML/MIN
[2023-04-06 11:48] LABS: PRO BRAIN NATRIURETIC PEPTIDE 79 PG/ML (0-125)
== END 2023-04-06 13:44 | disposition home or self-care (01) ==
LOC: ER 10:56
DX: R07.89 Other chest pain (principal); T50.995A Adverse effect of other drugs, medicaments and biological substances, initial encounter; I10 Essential (primary) hypertension; J45.909 Unspecified asthma, uncomplicated; G89.29 Other chronic pain; Z94.0 Kidney transplant status; Z79.899 Other long term (current) drug therapy; Y92.89 Other specified places as the place of occurrence of the external cause
CPT/HCPCS: 36415; 71045; 80053; 83880; 84484; 85025; 93005; 99285

== ENCOUNTER 2023-04-15 19:19 | Emergency (ER) | payer BC, MEDICAID ==
[~2023-04-15] VITALS: Ht 157.5 cm; Wt 71.8 kg
[2023-04-15 20:40] LABS: BASOPHILS % (AUTO) 0.5 % (0-1); EOSINOPHILS % (AUTO) 0.4 % (0-6); HEMATOCRIT 37.2 % (35.0-45.0); HEMOGLOBIN 12.5 g/dl (12.0-16.0); LYMPHOCYTES # (AUTO) 1.3 X10'3 (1.1-4.8); LYMPHOCYTES % (AUTO) 22.7 % (21-51); MEAN CORPUSCULAR HEMOGLOBIN 31.9 PG (27.0-31.0); MEAN CORPUSCULAR HGB CONC 33.7 g/dL (33.0-36.5); MEAN CORPUSCULAR VOLUME 94.6 FL (78-98); MEAN PLATELET VOLUME 9.4 FL (7.4-10.4); MONOCYTES # (AUTO) 0.5 X10'3 (0-0.9); MONOCYTES % (AUTO) 8.3 % (2-12); NEUTROPHILS # (AUTO) 3.9 X10'3 (1.8-7.7); NEUTROPHILS % (AUTO) 68.1 % (42-75); PLATELET COUNT 199 X10'3 (140-440); RED BLOOD COUNT 3.93 X10'6 (4.20-5.60); RED CELL DISTRIBUTION WIDTH 13.3 % (11.5-14.5); WHITE BLOOD COUNT 5.7 X10'3 (4.5-11.0)
[2023-04-15 20:51] LABS: ALANINE AMINOTRANSFERASE 16 U/L (12-78); ALBUMIN 3.7 G/DL (3.4-5.0); ALKALINE PHOSPHATASE 39 IU/L (46-116); ANION GAP 8 (8-16); ASPARTATE AMINO TRANSFERASE 16 U/L (10-37); BILIRUBIN,TOTAL 0.3 MG/DL (0.1-1.0); BLOOD UREA NITROGEN 7 MG/DL (7-18); BUN/CREATININE RATIO 9.3 (10.0-20.0); CALCIUM 8.7 MG/DL (8.5-10.1); CHLORIDE 101 MMOL/L (99-107); CREATININE 0.75 MG/DL (0.40-0.90); GLUCOSE 106 MG/DL (70-104); POTASSIUM 3.6 MMOL/L (3.5-5.1); SODIUM 135 MMOL/L (135-145); TOTAL CARBON DIOXIDE 26.4 MMOL/L (24-32); TOTAL PROTEIN 7.3 G/DL (6.4-8.2); eCRCL 80 ML/MIN; eGFR > 90 ML/MIN
[2023-04-15 21:01] LABS: MAGNESIUM 1.8 MG/DL (1.5-2.4); PRO BRAIN NATRIURETIC PEPTIDE 50 PG/ML (0-125); THYROID STIMULATING HORMONE 1.56 ulU/ml (0.34-4.50)
[2023-04-15 21:44] VITALS: BP 110/71; PULSE 85; RESP 16; TEMP 98.5; O2SAT 98
== END 2023-04-15 21:57 | disposition home or self-care (01) ==
LOC: ER 19:19
DX: R42 Dizziness and giddiness (principal); I10 Essential (primary) hypertension; R00.2 Palpitations
CPT/HCPCS: 36415; 80053; 83735; 83880; 84443; 84484; 85025; 93005; 99284

== ENCOUNTER 2023-04-27 20:38 | Emergency (ER) | payer BC, MEDICAID ==
[~2023-04-27] VITALS: Ht 157.5 cm; Wt 75.9 kg
[2023-04-27 20:55] VITALS: TEMP 98.8
[2023-04-27 21:50] LABS: BILIRUBIN,URINE NEGATIVE (Neg); CLARITY,URINE CLEAR (Clear); COLOR,URINE STRAW (Yellow); GLUCOSE, URINE NEGATIVE (Neg); KETONES,URINE NEGATIVE (Neg); LEUKOCYTE ESTERASE ,URINE NEGATIVE (Neg); NITRITES, URINE NEGATIVE (Neg); OCCULT BLOOD,URINE TRACE-INTACT (Neg); PH,URINE 6.5 (4.8-8.0); PROTEIN,URINE NEGATIVE (Neg); UROBILINOGEN,URINE 0.2 E.U/dL (0.2-1.0)
[2023-04-27 21:53] LABS: UA COLLECTION TYPE CLN CATCH MIDSTREAM
[2023-04-27 21:58] LABS: URINE HCG NEGATIVE (NEG)
[2023-04-27 22:02] LABS: BACTERIA,URINE NONE SEEN /HPF (Neg); RBC,URINE 0-2 /HPF (0-2); SQUAMOUS EPITHELIAL CELL,UR FEW /LPF (FEW); WBC,URINE 0-4 /HPF (0-4)
[2023-04-27 22:54] LABS: BASOPHILS % (AUTO) 0.6 % (0-1); EOSINOPHILS # (AUTO) 0.1 X10'3 (0-0.9); EOSINOPHILS % (AUTO) 1.2 % (0-6); HEMOGLOBIN 11.7 g/dl (12.0-16.0); LYMPHOCYTES % (AUTO) 37.8 % (21-51); MEAN CORPUSCULAR HEMOGLOBIN 31.9 PG (27.0-31.0); MEAN CORPUSCULAR HGB CONC 33.4 g/dL (33.0-36.5); MEAN CORPUSCULAR VOLUME 95.6 FL (78-98); MEAN PLATELET VOLUME 9.3 FL (7.4-10.4); MONOCYTES # (AUTO) 0.7 X10'3 (0-0.9); MONOCYTES % (AUTO) 13.4 % (2-12); NEUTROPHILS # (AUTO) 2.6 X10'3 (1.8-7.7); PLATELET COUNT 216 X10'3 (140-440); RED BLOOD COUNT 3.67 X10'6 (4.20-5.60); RED CELL DISTRIBUTION WIDTH 13.7 % (11.5-14.5); WHITE BLOOD COUNT 5.4 X10'3 (4.5-11.0)
[2023-04-27 23:07] LABS: ALANINE AMINOTRANSFERASE 18 U/L (12-78); ALBUMIN 3.5 G/DL (3.4-5.0); ALKALINE PHOSPHATASE 36 IU/L (46-116); ANION GAP 7 (8-16); ASPARTATE AMINO TRANSFERASE 16 U/L (10-37); BILIRUBIN,TOTAL 0.2 MG/DL (0.1-1.0); BLOOD UREA NITROGEN 9 MG/DL (7-18); BUN/CREATININE RATIO 12.7 (10.0-20.0); CALCIUM 9.1 MG/DL (8.5-10.1); CHLORIDE 104 MMOL/L (99-107); CREATININE 0.71 MG/DL (0.40-0.90); GLUCOSE 82 MG/DL (70-104); LIPASE 22 U/L (16-77); POTASSIUM 3.5 MMOL/L (3.5-5.1); SODIUM 138 MMOL/L (135-145); TOTAL PROTEIN 6.9 G/DL (6.4-8.2); eCRCL 84 ML/MIN; eGFR > 90 ML/MIN
[2023-04-27] MEDS ORDERED: morphine 4 MG/ML inj SYRINge IV ONE (23:55)
[2023-04-27] MEDS ORDERED: normal saline 1000ml 1,000 ML IV ONE (23:55)
[2023-04-27] MEDS ORDERED: ondansetron/PF 4mg/2ml inj IV ONE (23:55)
[2023-04-28] MEDS ORDERED: ondansetron 4mg rapidly disintigrating tab PO ONE (00:35)
[2023-04-28] MEDS ORDERED: HYDROcodone/acetaminophen 5mg/325mg tablet PO ONE ×2 (00:35→09:40)
[2023-04-28] MEDS ORDERED: morphine 4 MG/ML inj SYRINge IV ONE (03:55)
[2023-04-28] MEDS ORDERED: ondansetron/PF 4mg/2ml inj IV ONE (03:55)
[2023-04-28] MEDS ORDERED: CYCL-1 PO (09:38)
[2023-04-28] MEDS ORDERED: IBUP-1984 PO (10:16)
[2023-04-28 10:18] VITALS: BP 120/72; PULSE 62; RESP 16; O2SAT 98
== END 2023-04-28 10:23 | disposition home or self-care (01) ==
LOC: ER 20:39
DX: N83.291 Other ovarian cyst, right side (principal); I10 Essential (primary) hypertension; J45.909 Unspecified asthma, uncomplicated; G89.29 Other chronic pain; M54.9 Dorsalgia, unspecified; F31.9 Bipolar disorder, unspecified
CPT/HCPCS: 36415; 74176; 76856; 80053; 81001; 81025; 83690; 85025; 93976; 96361; 96374; 96375; 99285; J2270; J2405; J7030

== ENCOUNTER 2023-06-21 19:22 | Emergency (ER) | payer BC, MEDICAID ==
[~2023-06-21] VITALS: Ht 160 cm; Wt 69.5 kg
[~2023-06-21 19:22] MED LIST changes: +CYCL-1 PO
[2023-06-21 20:18] LABS: BASOPHILS % (AUTO) 0.4 % (0-1); EOSINOPHILS % (AUTO) 0.3 % (0-6); HEMOGLOBIN 13.4 g/dl (12.0-16.0); LYMPHOCYTES % (AUTO) 36.7 % (21-51); MEAN CORPUSCULAR HEMOGLOBIN 31.5 PG (27.0-31.0); MEAN CORPUSCULAR HGB CONC 33.4 g/dL (33.0-36.5); MEAN CORPUSCULAR VOLUME 94.1 FL (78-98); MONOCYTES # (AUTO) 0.5 X10'3 (0-0.9); MONOCYTES % (AUTO) 8.7 % (2-12); NEUTROPHILS # (AUTO) 2.9 X10'3 (1.8-7.7); NEUTROPHILS % (AUTO) 53.9 % (42-75); PLATELET COUNT 204 X10'3 (140-440); RED BLOOD COUNT 4.24 X10'6 (4.20-5.60); RED CELL DISTRIBUTION WIDTH 12.1 % (11.5-14.5); WHITE BLOOD COUNT 5.4 X10'3 (4.5-11.0)
[2023-06-21 20:28] LABS: ALANINE AMINOTRANSFERASE 15 U/L (12-78); ALBUMIN 3.9 G/DL (3.4-5.0); ALBUMIN/GLOBULIN RATIO 1.1 (1.1-1.5); ALKALINE PHOSPHATASE 37 IU/L (46-116); ANION GAP 13 (8-16); ASPARTATE AMINO TRANSFERASE 16 U/L (10-37); BILIRUBIN,TOTAL 0.3 MG/DL (0.1-1.0); BLOOD UREA NITROGEN 11 MG/DL (7-18); BUN/CREATININE RATIO 11.8 (10.0-20.0); CALCIUM 8.5 MG/DL (8.5-10.1); CHLORIDE 103 MMOL/L (99-107); CREATININE 0.93 MG/DL (0.40-0.90); GLUCOSE 144 MG/DL (70-104); POTASSIUM 3.3 MMOL/L (3.5-5.1); SODIUM 143 MMOL/L (135-145); TOTAL CARBON DIOXIDE 26.7 MMOL/L (24-32); TOTAL PROTEIN 7.5 G/DL (6.4-8.2); eCRCL 67 ML/MIN; eGFR 81 ML/MIN
[2023-06-21 20:38] LABS: PRO BRAIN NATRIURETIC PEPTIDE 45 PG/ML (0-125)
[2023-06-21 20:39] LABS: BETA HCG,QUANTITATIVE 2 mIU/ml
[2023-06-21] MEDS ORDERED: HYDR-3686 PO (21:30)
[2023-06-21 21:44] VITALS: BP 122/83; PULSE 74; RESP 16; TEMP 98.2; O2SAT 100
== END 2023-06-21 21:47 | disposition home or self-care (01) ==
LOC: ER 19:23
DX: R00.2 Palpitations (principal); E86.0 Dehydration; I11.0 Hypertensive heart disease with heart failure; J45.909 Unspecified asthma, uncomplicated; D64.9 Anemia, unspecified; F32.A Depression, unspecified; Z79.899 Other long term (current) drug therapy
CPT/HCPCS: 36415; 71045; 80053; 83880; 84484; 84702; 85025; 93005; 99285

== ENCOUNTER 2023-08-13 21:33 | Emergency (ER) | payer BC, MEDICAID ==
[~2023-08-13] VITALS: Ht 157.5 cm; Wt 72.7 kg
[2023-08-13 21:37] VITALS: TEMP 98.3
[2023-08-14] MEDS ORDERED: ketorolac trometh inj. 60 MG/2 ML VIAL IM ONE (01:50)
[2023-08-14] MEDS: acetaminophen 325mg tablet PO ONE (02:49)
[2023-08-14] MEDS: ketorolac tromethamine 15mg/ml inj. IM ONE (02:50)
[2023-08-14 03:03] LABS: URINE HCG NEGATIVE (NEG)
[2023-08-14 04:13] VITALS: BP 132/84; PULSE 80; RESP 14; O2SAT 100
== END 2023-08-14 04:15 | disposition home or self-care (01) ==
LOC: ER 21:34
DX: S19.9XXA Unspecified injury of neck, initial encounter (principal); I10 Essential (primary) hypertension; J45.909 Unspecified asthma, uncomplicated; G89.29 Other chronic pain; M54.9 Dorsalgia, unspecified; F32.9 Major depressive disorder, single episode, unspecified; F41.9 Anxiety disorder, unspecified; V89.2XXA Person injured in unspecified motor-vehicle accident, traffic, initial encounter; Y93.89 Activity, other specified; Y92.89 Other specified places as the place of occurrence of the external cause; Y99.8 Other external cause status
CPT/HCPCS: 72052; 72100; 81025; 96372; 99284; J1885

== ENCOUNTER 2023-12-31 13:27 | Outpatient (CLI) | payer BC, MEDICAID ==
[~2023-12-31 13:27] MED LIST changes: +barium sulfate 340gm for oral suspension 1 BOTTLE SUSP.RECON PO ONE
== END 2023-12-31 23:59 | disposition home or self-care (01) ==
LOC: RAD 13:27
PROVIDERS: ATTEND Internal Medicine Gastroenterology
DX: K44.9 Diaphragmatic hernia without obstruction or gangrene (principal); R13.10 Dysphagia, unspecified
CPT/HCPCS: 74220

== ENCOUNTER 2024-02-20 16:51 | Emergency (ER) | payer BC, MEDICAID ==
[~2024-02-20] VITALS: Ht 160 cm; Wt 150.0 kg
[~2024-02-20 16:51] MED LIST changes: -barium sulfate 340gm for oral suspension 1 BOTTLE SUSP.RECON PO ONE
[2024-02-20 18:04] LABS: BASOPHILS % (AUTO) 0.6 % (0-1); EOSINOPHILS # (AUTO) 0.1 X10'3 (0-0.9); EOSINOPHILS % (AUTO) 1.1 % (0-6); HEMATOCRIT 37.5 % (35.0-45.0); HEMOGLOBIN 12.5 g/dl (12.0-16.0); LYMPHOCYTES # (AUTO) 1.4 X10'3 (1.1-4.8); LYMPHOCYTES % (AUTO) 29.3 % (21-51); MEAN CORPUSCULAR HEMOGLOBIN 31.2 PG (27.0-31.0); MEAN CORPUSCULAR HGB CONC 33.3 g/dL (33.0-36.5); MEAN CORPUSCULAR VOLUME 93.7 FL (78-98); MEAN PLATELET VOLUME 9.7 FL (7.4-10.4); MONOCYTES # (AUTO) 0.5 X10'3 (0-0.9); NEUTROPHILS # (AUTO) 2.7 X10'3 (1.8-7.7); PLATELET COUNT 179 X10'3 (140-440); RED BLOOD COUNT 4.01 X10'6 (4.20-5.60); WHITE BLOOD COUNT 4.7 X10'3 (4.5-11.0)
[2024-02-20 18:20] LABS: ALANINE AMINOTRANSFERASE 14 U/L (12-78); ALBUMIN 3.4 G/DL (3.4-5.0); ALKALINE PHOSPHATASE 37 IU/L (46-116); ANION GAP 7 (8-16); ASPARTATE AMINO TRANSFERASE 9 U/L (10-37); BILIRUBIN,TOTAL 0.2 MG/DL (0.1-1.0); BLOOD UREA NITROGEN 11 MG/DL (7-18); BUN/CREATININE RATIO 12.4 (10.0-20.0); CALCIUM 8.5 MG/DL (8.5-10.1); CHLORIDE 103 MMOL/L (99-107); CREATININE 0.89 MG/DL (0.40-0.90); GLUCOSE 123 MG/DL (70-104); POTASSIUM 3.9 MMOL/L (3.5-5.1); SODIUM 136 MMOL/L (135-145); TOTAL CARBON DIOXIDE 26.1 MMOL/L (24-32); TOTAL PROTEIN 6.7 G/DL (6.4-8.2); eCRCL 70 ML/MIN; eGFR 85 ML/MIN
[2024-02-20 18:28] LABS: PRO BRAIN NATRIURETIC PEPTIDE 38 PG/ML (0-125)
[2024-02-20 19:11] LABS: MAGNESIUM 2.1 MG/DL (1.5-2.4)
[2024-02-20] MEDS: sotalol HCl 40mg (1/2 tablet) PO STA (19:28)
[2024-02-20 20:12] VITALS: BP 114/79; PULSE 76; RESP 16; TEMP 97.8; O2SAT 100
[2024-02-20] MEDS ORDERED: PANT-47 PO (20:13)
[2024-02-20 20:24] LABS: BILIRUBIN,URINE NEGATIVE (Neg); CLARITY,URINE CLEAR (Clear); COLOR,URINE YELLOW (Yellow); GLUCOSE, URINE NEGATIVE (Neg); KETONES,URINE TRACE mg/dl (Neg); LEUKOCYTE ESTERASE ,URINE NEGATIVE (Neg); NITRITES, URINE NEGATIVE (Neg); OCCULT BLOOD,URINE NEGATIVE (Neg); PH,URINE 7.5 (4.8-8.0); PROTEIN,URINE NEGATIVE (Neg); UA COLLECTION TYPE CLN CATCH MIDSTREAM; UROBILINOGEN,URINE 0.2 E.U/dL (0.2-1.0)
== END 2024-02-20 20:15 | disposition home or self-care (01) ==
LOC: ER 16:52
DX: I47.10 Supraventricular tachycardia, unspecified (principal); R13.10 Dysphagia, unspecified; I10 Essential (primary) hypertension; J45.909 Unspecified asthma, uncomplicated; G89.29 Other chronic pain; M54.9 Dorsalgia, unspecified; F41.9 Anxiety disorder, unspecified; F32.A Depression, unspecified; Z79.899 Other long term (current) drug therapy
CPT/HCPCS: 36415; 71045; 80053; 81003; 83735; 83880; 84484; 85025; 93005; 99285

== ENCOUNTER 2024-08-06 19:11 | Emergency (ER) | payer BC, MEDICAID ==
[~2024-08-06] VITALS: Ht 157.5 cm; Wt 73.3 kg
[~2024-08-06 19:11] MED LIST changes: +PANT-47 PO
[2024-08-06 19:36] VITALS: TEMP 99.6
[2024-08-06] MEDS: ketorolac trometh 30MG/ML vial 30 MG/ML VIAL IM ONE (22:23)
[2024-08-06 23:01] VITALS: BP 145/95; PULSE 84; RESP 16; O2SAT 98
== END 2024-08-06 23:14 | disposition home or self-care (01) ==
LOC: ER 19:12
DX: M79.651 Pain in right thigh (principal); J45.909 Unspecified asthma, uncomplicated; I10 Essential (primary) hypertension; F41.9 Anxiety disorder, unspecified; F32.A Depression, unspecified; Z94.0 Kidney transplant status
CPT/HCPCS: 93971; 96372; 99285; J1885

== ENCOUNTER 2024-09-29 03:04 | Emergency (ER) | payer BC, MEDICAID ==
[~2024-09-29] VITALS: Ht 160 cm; Wt 70.0 kg
[2024-09-29 03:10] VITALS: BP 106/54; PULSE 82; RESP 15; O2SAT 99
--- NOTE | 2024-09-29 04:05 | Physician Documentation ---
History of Present Illness ~ Chief Complaint: Wound Stated Complaint: CHEST PAIN,WOUND CHECK Time Seen by MD: 04:01 Primary Medical Doctor: [facility] HPI Patient presents to the emergency room for evaluation of a wound to her right gould. This happened a proximally three weeks ago. She was seen at a walk-in clinic at that time. She believes they should of placed sutures at that time and has a picture however I am able to truly evaluate to nature of the wound other than that has there. She is also concerned because his an adjacent hardness to the subcutaneous tissue. No fevers. Tetanus within 5 years?: No Medication Reconciliation Allergies: Coded Allergies: No Known Allergies (Unverified , 09/29/24) Scheduled Benzocaine/Menthol (Cepacol Sore Throat Lozenge), 1 TAB PO Q4H Cyclobenzaprine* (Cyclobenzaprine*), 1 TAB PO TID Duloxetine HCl (Duloxetine HCl), 1 CAP PO QAM Meloxicam (Meloxicam), 1 TAB PO DAILY Metoprolol Tartrate (Lopressor tablet), 12.5 MG PO DAILY Pantoprazole Sodium (PROTONIX tablet), 1 TAB PO DAILY Scheduled PRN albuterol inhaler (Pro-Air Inhaler), 2 PUFFS PO Q4H PRN for SOB or wheezing Past Medical History Past Medical History: Headache, *CARDIOVASCULAR*, Hypertension, Asthma, Pneumonia, Anemia, Kidney Transplant, Chronic Back Pain, Anxiety, Depression Past Surgical History: orthopedic surgeries Patient History: FH: heart disease FATHER Alcohol Use: None Drug Use: none Lives with: Family Lives In: Home Occupation: employed Review of Systems ROS All review of systems negative except as per HPI Physical Exam Vital Signs: Temperature: 96.8, Source: Temporal, Heart Rate: 82, Respiratory Rate: 15, BP: 106/54, Pulse Oximetry: 99, Weight: 70.050 Physical Exam General: Patient is awake, alert, oriented x4 in no acute distress Head: Normocephalic and atraumatic. Eyes: Conjunctival normal. EOMI. PERRL. ENT: Mucous membranes moist. Neck: Supple, trachea is midline. Chest: Clear to auscultation bilaterally without rales, rhonchi, or wheezes. There is no accessory muscle use or retractions. Cardiac: RRR without murmurs, gallops, or rubs. Extremities: 4 cm well healing crusted over laceration to her anterior right gould with no signs of infection. There is some palpable edema lateral to the area but no fluctuance or erythema Progress Results/Orders Results/Orders Vital Signs 09/29/24 03:10 Temp 96.8 Pulse 82 Resp 15 B/P (MAP) 106/54 Pulse Ox 99 Medical Decision Making Findings Patient presents to the emergency room for evaluation of leg wound as per HPI. Differentials include but are not limited to laceration, abscess, cellulitis, DVT. Physical exam is reassuring. Area lateral to the wound does have some firmness to touch but I believe this is related to inflammation does not represent subcutaneous infections/DVT. Patient's wound is healing nicely and although it is not healing as fast as she would like gould wounds are notorious for slow wound closure. I believe she will heal well with conservative management. He had not feel she requires wound care referral. No sutures indicated. No imaging indicated. No labs indicated. Vital stable Departure Disposition: 01 HOME / SELF CARE / HOMELESS Impression: Primary Impression: Wound Condition: Stable Discharge Instructions: How to Change Your Wound Dressing Referrals: NO PRIMARY CARE PROVIDER (PCP) Signature Scribe Signature: No scribe Attestation: The note accurately reflects work and decisions made by me.Robert Sheldon MD 09/29/24 04:22 ROBERT SHELDON MD September 29, 2024 04:05
[2024-09-29 04:24] VITALS: TEMP 96.8
[2024-09-29] MEDS: bacitracin 15gm ointment TP ONE (04:27)
[2024-09-29] MEDS: TETanus/Pertussis (Acell)/Diphther VAC/PF (Tdap-Adult) 0.5ml syringe IMVAC ONE (04:29)
[2024-09-29] MEDS: ibuprofen tablet 400 MG TABLET PO ONE (04:36)
== END 2024-09-29 04:48 | disposition home or self-care (01) ==
LOC: ER 03:05
DX: S81.811A Laceration without foreign body, right lower leg, initial encounter (principal); F41.9 Anxiety disorder, unspecified; F32.A Depression, unspecified; I10 Essential (primary) hypertension; J45.909 Unspecified asthma, uncomplicated; Z94.0 Kidney transplant status; X58.XXXA Exposure to other specified factors, initial encounter; Y93.89 Activity, other specified; Y92.89 Other specified places as the place of occurrence of the external cause; Y99.8 Other external cause status
CPT/HCPCS: 90471; 90715; 99283

== ENCOUNTER 2024-10-04 12:50 | Emergency (ER) | payer BC, MEDICAID ==
[~2024-10-04] VITALS: Ht 160 cm; Wt 75.2 kg
[2024-10-04 13:05] VITALS: TEMP 98.6
[2024-10-04 14:21] LABS: BILIRUBIN,URINE NEGATIVE (Neg); CLARITY,URINE CLEAR (Clear); COLOR,URINE STRAW (Yellow); GLUCOSE, URINE NEGATIVE (Neg); KETONES,URINE NEGATIVE (Neg); LEUKOCYTE ESTERASE ,URINE NEGATIVE (Neg); NITRITES, URINE NEGATIVE (Neg); OCCULT BLOOD,URINE NEGATIVE (Neg); PROTEIN,URINE NEGATIVE (Neg); URINE HCG NEGATIVE (NEG); UROBILINOGEN,URINE 0.2 E.U/dL (0.2-1.0)
--- NOTE | 2024-10-04 14:23 | Physician Documentation ---
History of Present Illness ~ General Chief Complaint: Multiple Medical Complaints Stated Complaint: PELVIC PAIN Time Seen by MD: 15:12 Primary Medical Doctor: [facility] History of Present Illness Initial Comments 39-year-old female who presents to the emergency department with complaint of pelvic discomfort. Patient presently he has been follow up by [facility] and [facility] for other pelvic pathologies and autoimmune pathologies. Wonders today if she has a ovarian cyst or UTI because he has been having discomfort for three days without associated fever recent illness or injury or vaginal discharge pain or bleeding. He is awaiting prescriptions from her [facility] provider. This is intravaginal compounded Valium prescription. Patient is otherwise nontoxic. No nausea no vomiting no flank pain or fevers. Additionally patient has mentioned that she feels that her care is chronically suboptimal because of her raised. Medication Reconciliation Allergies: Coded Allergies: No Known Allergies (Unverified , 09/29/24) Scheduled Benzocaine/Menthol (Cepacol Sore Throat Lozenge), 1 TAB PO Q4H Cyclobenzaprine* (Cyclobenzaprine*), 1 TAB PO TID Duloxetine HCl (Duloxetine HCl), 1 CAP PO QAM Ibuprofen* (Motrin*), 400 MG PO Q6H Meloxicam (Meloxicam), 1 TAB PO DAILY Metoprolol Tartrate (Lopressor tablet), 12.5 MG PO DAILY Pantoprazole Sodium (PROTONIX tablet), 1 TAB PO DAILY Scheduled PRN Hydrocodone Bit/Acetaminophen 5/325 MG (Gilbert 5/325 MG), 1 TAB PO Q6H PRN for pain albuterol inhaler (Pro-Air Inhaler), 2 PUFFS PO Q4H PRN for SOB or wheezing Past Medical History Past Medical History: Headache, *CARDIOVASCULAR*, Hypertension, Asthma, Pneumonia, Anemia, Kidney Transplant, Chronic Back Pain, Anxiety, Depression Past Surgical History: orthopedic surgeries Patient History: FH: heart disease FATHER Alcohol Use: None Drug Use: none Lives with: Family Lives In: Home Occupation: employed Physical Exam Physical Exam Vital Signs: RN Vital Signs have been reviewed: Yes, Temperature: 98.6, Source: Temporal, Heart Rate: 68, Respiratory Rate: 16, BP: 124/91, Pulse Oximetry: 99, Weight: 75.250 General Appearance: alert, WD/WN, mild distress Head: normal inspection Face: normal inspection Pupils/EOM/Fundus: PERRLA Respiratory: no respiratory distress Chest: no accessory muscle use Gastrointestinal: non-tender Back: normal inspection Extremities: normal range of motion Neurologic: oriented x4, visual basic programmer II-XII nml as tested Motor / Sensory: no motor deficit, no sensory deficit Skin: normal color, warm/dry Progress Results/Orders Results/Orders Orders - TIARA BAJWA PAC Ultrasound Pelvis W/Orwo Dplx (10/04/24 ) Completed Orders - TIARA BAJWA PAC Ultrasound Pelvis W/Orwo Dplx (10/04/24 ) Vital Signs 10/04/24 10/04/24 10/04/24 13:05 15:14 15:15 Temp 98.6 Pulse 68 89 Resp 16 16 16 B/P (MAP) 124/91 124/87 (99) Pulse Ox 99 94 O2 Flow Rate 0 Laboratory Tests Test 10/04/24 13:25 10/04/24 14:57 Urine Specimen Description Cln catch midstream Urine Color Straw Urine Clarity Clear Urine pH 6.0 Urine Specific [place] <=1.005 Urine Protein Negative Urine Glucose (UA) Negative Urine Ketones Negative Urine Occult Blood Negative Urine Nitrite Negative Urine Bilirubin Negative Urine Urobilinogen 0.2 Urine Leukocyte Esterase Negative Urine Culture Indicated Not ind Volume Urine Centrifuged 10 ml Urine HCG, Qualitative Negative Urine Comment White Blood Count 4.2 L Red Blood Count 4.10 L Hemoglobin 12.6 Hematocrit 37.5 Mean Corpuscular Volume 91.5 Mean Corpuscular Hemoglobin 30.8 Mean Corpuscular Hemoglobin Concent 33.6 Red Cell Distribution Width 12.8 Platelet Count 190 Mean Platelet Volume 8.6 Neutrophils (%) (Auto) 52.6 Lymphocytes (%) (Auto) 35.0 Monocytes (%) (Auto) 10.5 Eosinophils (%) (Auto) 1.4 Basophils (%) (Auto) 0.5 Neutrophils # (Auto) 2.2 Lymphocytes # (Auto) 1.5 Monocytes # (Auto) 0.4 Eosinophils # (Auto) 0.1 Basophils # (Auto) 0.0 CBC Comment Sodium Level 137 Potassium Level 4.1 Chloride Level 103 Carbon Dioxide Level 26.5 Anion Gap 8 Blood Urea Nitrogen 19 H Creatinine 0.85 Estimated GFR/1.73 m2 90 BUN/Creatinine Ratio 22.4 H Glucose Level 88 Calcium Level 8.6 Total Bilirubin 0.3 Aspartate Amino Transf (AST/SGOT) 21 Alanine Aminotransferase (ALT/SGPT) 24 Alkaline Phosphatase 44 L Total Protein 7.1 Albumin 3.6 Globulin 3.5 Albumin/Globulin Ratio 1.0 L Lipase 29 Chemistry Comments Medical Decision Making Differential Diagnosis Acute pelvic pathologies or so she had with the patient's suprapubic discomfort. Examination history conducted with drop pit worker. She will follow up with her spouse show this. She is discharged nontoxic with breakthrough pain management. Ultrasound imaging reassuring. Screening labs and urinalysis also reassuring for no obvious infection. We will provide patient with breakthrough pain management. She understands the importance of follow up with her specialists. Discharged safe stable condition. Additionally patient is having difficulty following up with the primary care physician for she was recently denied access to [facility]. She presently inserting a new primary care provider. Departure Disposition: HOME / SELF CARE / HOMELESS Impression: Primary Impression: Pelvic pain Condition: Stable Additional Instructions: Today in the emergency department you had labs obtained and urinalysis obtained. The all reassuring. Your ultrasound imaging is reassuring. Keep your scheduled follow up with your specialist. Begin breakthrough pain medicine as directed. Referrals: NO PRIMARY CARE PROVIDER (PCP) Prescriptions Hydrocodone Bit/Acetaminophen 5/325 MG (Gilbert 5/325 MG) 5 Mg/325 Mg Tablet 1 TAB PO Q6H PRN for pain, #12 TAB Prov: TIARA BAJWA 10/04/24 Ibuprofen* (Motrin*) 400 Mg Tablet 400 MG PO Q6H for 10 Days, #30 TAB Prov: TIARA BAJWA 10/04/24 Education Educated: Patient Educated regarding: diagnosis, treatment Additional Comment Medical Screen Exam History: 39-year-old female history of ovarian cysts presents with one day of pelvic pain and urinary frequency without dysuria or fever, patient additionally reports concern for water retention as she has not been taking her prescribed hydrochlorothiazide for hypertension as she she is concerned that she has had episodes of low blood pressure while taking the medication. Patient reports no vaginal discharge or discomfort. VITALS: Reviewed and as above. GENERAL: Alert, nontoxic appearing, no apparent distress. RESPIRATORY: No increased work of breathing, no respiratory distress, speaking in full clear sentences MSE performed in triage and patient returned to ED lobby by nursing staff The note accurately reflects work and decisions made by me.PAM Joseph 10/04/24 14:23 Signature Scribe Signature: . Attestation: . BRYAN HOROWITZ [facility] Oct 04, 2024 14:23 TIARA BAJWA PAC Oct 04, 2024 17:22
[2024-10-04 14:28] LABS: UA COLLECTION TYPE CLN CATCH MIDSTREAM
[2024-10-04 15:08] LABS: BASOPHILS % (AUTO) 0.5 % (0-1); EOSINOPHILS # (AUTO) 0.1 X10'3 (0-0.9); EOSINOPHILS % (AUTO) 1.4 % (0-6); HEMATOCRIT 37.5 % (35.0-45.0); HEMOGLOBIN 12.6 g/dl (12.0-16.0); LYMPHOCYTES # (AUTO) 1.5 X10'3 (1.1-4.8); MEAN CORPUSCULAR HEMOGLOBIN 30.8 PG (27.0-31.0); MEAN CORPUSCULAR HGB CONC 33.6 g/dL (33.0-36.5); MEAN CORPUSCULAR VOLUME 91.5 FL (78-98); MEAN PLATELET VOLUME 8.6 FL (7.4-10.4); MONOCYTES # (AUTO) 0.4 X10'3 (0-0.9); MONOCYTES % (AUTO) 10.5 % (2-12); NEUTROPHILS # (AUTO) 2.2 X10'3 (1.8-7.7); NEUTROPHILS % (AUTO) 52.6 % (42-75); PLATELET COUNT 190 X10'3 (140-440); RED CELL DISTRIBUTION WIDTH 12.8 % (11.5-14.5); WHITE BLOOD COUNT 4.2 X10'3 (4.5-11.0)
[2024-10-04 15:15] VITALS: BP 124/87; PULSE 89; RESP 16; O2SAT 94
[2024-10-04 15:29] LABS: ALANINE AMINOTRANSFERASE 24 U/L (12-78); ALBUMIN 3.6 G/DL (3.4-5.0); ALKALINE PHOSPHATASE 44 IU/L (46-116); ANION GAP 8 (8-16); ASPARTATE AMINO TRANSFERASE 21 U/L (10-37); BILIRUBIN,TOTAL 0.3 MG/DL (0.1-1.0); BLOOD UREA NITROGEN 19 MG/DL (7-18); BUN/CREATININE RATIO 22.4 (10.0-20.0); CALCIUM 8.6 MG/DL (8.5-10.1); CHLORIDE 103 MMOL/L (99-107); CREATININE 0.85 MG/DL (0.40-0.90); GLUCOSE 88 MG/DL (70-104); LIPASE 29 U/L (16-77); POTASSIUM 4.1 MMOL/L (3.5-5.1); SODIUM 137 MMOL/L (135-145); TOTAL CARBON DIOXIDE 26.5 MMOL/L (24-32); TOTAL PROTEIN 7.1 G/DL (6.4-8.2); eCRCL 73 ML/MIN; eGFR 90 ML/MIN
[2024-10-04] MEDS ORDERED: IBUP-1984 PO (17:21)
[2024-10-04] MEDS ORDERED: HYDR-3965 PO (17:21)
--- NOTE | 2024-10-04 17:41 | RADIOLOGY REPORT ---
Procedure: US ULTRASOUND PELVIS W/[facility]WO [facility] Study Date and Requested Time: 10/04/2024 04:30 PM Study Description: US ULTRASOUND PELVIS W/ORWO DPLX History: Mass Comparison: US US PELVIS/WITH DUPLEX on DOS: 04/28/23 Technique: Multiple transabdominal and transvaginal high resolution avitia-scale images obtained of the uterus and adnexa with color Doppler for evaluation of adnexal blood flow and vascularity as indicat ed. Findings: Uterus measures 9.1 x 3.6 x 5.7 cm, with homogeneous echotexture. Endometrium within normal limits, m easuring 0.3 cm in thickness with smooth contour. Cervix within normal limits. Right ovary measures 3.5 x 2.3 x 2.7 cm. Left ovary measures 3.8 x 2.1 x 3.6 cm . Normal bilateral o varian color doppler flow. No evidence of free fluid in the cul-de-sac. Impression: Unremarkable sonographic study of the pelvis.
== END 2024-10-04 17:55 | disposition home or self-care (01) ==
LOC: ER 12:51
DX: R10.2 Pelvic and perineal pain (principal); F41.9 Anxiety disorder, unspecified; F32.A Depression, unspecified; I10 Essential (primary) hypertension; J45.909 Unspecified asthma, uncomplicated; Z94.0 Kidney transplant status
CPT/HCPCS: 36415; 76856; 80053; 81003; 81025; 83690; 85025; 93976; 99284

== ENCOUNTER 2025-02-04 20:47 | Emergency (ER) | payer BC, MEDICAID ==
[~2025-02-04] VITALS: Ht 160 cm; Wt 77.3 kg
--- NOTE | 2025-02-04 22:06 | Physician Documentation ---
History of Present Illness ~ Chief Complaint: Foot pain Stated Complaint: GLASS IN R FOOT Time Seen by MD: 21:43 Primary Medical Doctor: [facility] Source: patient Mode of Arrival: POV Exam Limitations: no limitations HPI 39-year-old female with concerns of having glass slivers in her right foot she states she stepped on some glass a few days ago Tetanus witin 5 years: No Medication Reconciliation Allergies: Coded Allergies: No Known Allergies (Unverified , 09/29/24) Scheduled Benzocaine/Menthol (Cepacol Sore Throat Lozenge), 1 TAB PO Q4H Cyclobenzaprine* (Cyclobenzaprine*), 1 TAB PO TID Duloxetine HCl (Duloxetine HCl), 1 CAP PO QAM Meloxicam (Meloxicam), 1 TAB PO DAILY Metoprolol Tartrate (Lopressor tablet), 12.5 MG PO DAILY Pantoprazole Sodium (PROTONIX tablet), 1 TAB PO DAILY Scheduled PRN albuterol inhaler (Pro-Air Inhaler), 2 PUFFS PO Q4H PRN for SOB or wheezing Past Medical History Past Medical History: Headache, *CARDIOVASCULAR*, Hypertension, Asthma, Pneumonia, Anemia, Kidney Transplant, Chronic Back Pain, Anxiety, Depression Past Surgical History: orthopedic surgeries Patient History: FH: heart disease FATHER Alcohol Use: None Drug Use: none Lives with: Family Lives In: Home Occupation: employed Review of Systems Integumentary: Reports: see HPI Physical Exam Vital Signs: RN Vital Signs have been reviewed: Yes, Temperature: 98.0, Heart Rate: 96, Respiratory Rate: 16, BP: 121/82, Pulse Oximetry: 99, Weight: 77.270 Oxygen Flow Rate: 0 Physical Exam General: Alert, no apparent distress. HEENT: moist mucous membranes. Neck: Full range of motion. Respiratory: No respiratory distress speaking in full sentences Chest: No accessory muscle use. Cardiovascular: Appears well perfused Neurologic: Oriented x4. Psychiatric: Normal mood and affect. Skin: No obvious open areas to the right heel Progress Results/Orders Results/Orders Orders - ASHA PIERCE NP Foot,Limited (Ap/Lat) (02/04/25 21:41) Completed Orders - ASHA PIERCE NP Foot,Limited (Ap/Lat) (02/04/25 21:41) Vital Signs 02/04/25 20:51 Temp 98.0 Pulse 96 Resp 16 B/P (MAP) 121/82 Pulse Ox 99 O2 Flow Rate 0 EKG/XRAY/CT/US/VASC/MRI Bone/Soft Tissue X-Ray (Ext.) : Additional Comment CLINICAL INDICATION: forieign body TECHNIQUE: 3 views DI FOOT,LIMITED (AP/LAT) Comparison: None FINDINGS: No appreciable soft tissue swelling. Punctate densities project at the soft tissues at the plantar midfoot and 3rd toe. Normal osseous mineralization. No significant degenerative change. Unremarkable soft tissues. IMPRESSION: 1. No acute osseous finding of the right foot. Punctate soft tissue densities at the plantar midfoot and 3rd toe. Medical Decision Making Findings X-ray to evaluate for foreign body patient was disgruntled not allowing me to feel touch or even try to clean off the pen alecia where she johnny on her heel to pinpoint where the pain has been. No obvious open areas to indicate that there is glass or foreign body in her heel Departure Time of Disposition: 22:17 Disposition: 01 HOME / SELF CARE / HOMELESS Impression: Primary Impression: Foot pain Condition: Stable Discharge Instructions: Foot Pain Additional Instructions: No obvious glass in the heel of your foot. If there are small slivers they can work their way out. Follow up with primary care Referrals: NO PRIMARY CARE PROVIDER (PCP) Education Educated: Patient Educated regarding: diagnosis, treatment, need for follow up Signature Scribe Signature: No scribe Attestation: The note accurately reflects work and decisions made by me.Asha OROZCO 02/04/25 22:05 ASHA PIERCE NP Feb 04, 2025 22:06
[2025-02-04 22:23] VITALS: BP 120/80; PULSE 95; RESP 18; TEMP 98.6; O2SAT 99
== END 2025-02-04 22:26 | disposition home or self-care (01) ==
LOC: ER 20:48
DX: M79.671 Pain in right foot (principal); I10 Essential (primary) hypertension; G89.29 Other chronic pain; D64.9 Anemia, unspecified; F41.9 Anxiety disorder, unspecified; F32.A Depression, unspecified; J45.909 Unspecified asthma, uncomplicated; Z79.899 Other long term (current) drug therapy; Z98.890 Other specified postprocedural states
CPT/HCPCS: 73620; 99283